=== PATIENT | male | born 1975 | race Caucasian/White ===

== ENCOUNTER 2018-06-28 09:11 | Inpatient (IN) | payer OTHER ==
[2018-06-28 09:27] VITALS: BMI 33.7
--- NOTE | 2018-06-28 10:12 | HP ---
CIWA Score Nausea/Vomitin-No Nausea/No Vomiting Muscle Tremors: 4-Moderate,w/Arms Extend Anxiety: 4-Mod. Anxious/Guarded Agitation: 4-Moderately Restless Paroxysmal Sweats: 3 Orientation: 0-Oriented Tacttile Disturbances: 0-None Auditory Disturbances: 0-None Visual Disturbances: 0-None Headache: 5-Severe CIWA-Ar Total Score: 20 - Admission Criteria [facility]ASAS Guidelines: Admission for Medically Managed Detox: Requires at least one of the followin. CIWA greater than 12 2. Seizures within the past 24 hours 3. Delirium tremens within the past 24 hours 4. Hallucinations within the past 24 hours 5. Acute intervention needed for co occurring medical disorder 6. Acute intervention needed for co occurring psychiatric disorder 7. Severe withdrawal that cannot be handled at a lower level of care (continued vomiting, continued diarrhea, abnormal vital signs) requiring intravenous medication and/or fluids 8. Admission ROS [facility] - [facility] Allergies/Adverse Reactions: Allergies Allergy/AdvReac Type Severity Reaction Status Date / Time No Known Allergies Allergy Verified 06/28/18 09:21 History of Present Illness: pt here requesting detox from etoh use , reports current daily use 4-6 pints liquor , starts drinking around 6 am , reports irritability and anxiety if not drinking , reports use since age 13, heavily since age 18, latest use yesterday evening 6 pm , current symptoms as above , longest sobriety 2 weeks " my family wanted me to stop drinking " , reports severe depression and etoh use since the of his sister 1 year ago in MVA , denies suicide attempts , denies current SI / HI . [place] detox " a long time ago ' reports did not complete admission process. reprots binge- drinking at times , did not try meds . 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 Exam Limitations: Clinical Condition - Ebola screening Have you traveled outside of the country in the last 21 days: No (N) Have you had contact with anyone from an Ebola affected area: No Do you have a fever: No - Review of Systems Constitutional: See HPI EENT: reports: No Symptoms Reported Respiratory: reports: No Symptoms reported Cardiac: reports: No Symptoms Reported GI: reports: No Symptoms Reported : reports: No Symptoms Reported Musculoskeletal: reports: No Symptoms Reported Integumentary: reports: No Symptoms Reported Neuro: reports: See HPI, Headache Endocrine: reports: No Symptoms Reported Psychiatric: reports: Orientated x3, Agitated, Anxious Patient History - Smoking Cessation Smoking history: Current every day smoker Initiated information on smoking cessation: No - Substances abused Alcohol Substance route: Oral Frequency: Daily Amount used: WHISKEY/VODKA- 5 PTS Age of first use: 14 Date of last use: 06/27/18 Family Disease History - Family Disease History Family Disease History: CA: Grandparent (GP - lung CA , uncle lung CA ), Other : Father (75 A & W ), Mother (d. 53 lung CA ), Sister (d. 43 MVA ( 2018 ) w/ 2 d. 8-yr old nieces) Admission Physical Exam S - Vital Signs Vital Signs: Vital Signs - 24 hr 06/28/18 09:15 Temperature 97.0 F L Pulse Rate 99 H Respiratory 18 Rate Blood Pressure 126/78 - Physical General Appearance: Yes: Moderate Distress, Irritable, Anxious HEENTM: Yes: EOMI, Hearing grossly Normal, Normocephalic, Normal Voice Respiratory: Yes: Chest Non-Tender, Lungs Clear, Normal Breath Sounds Neck: Yes: No masses,lesions,Nodules, Trachea in good position Cardiology: Yes: Regular Rhythm, Regular Rate, S1, S2, Tachycardia Abdominal: Yes: Non Tender, Soft, Protuberent Back: Yes: Normal Inspection Musculoskeletal: Yes: full range of Motion, Gait Steady Extremities: Yes: Normal Range of Motion, Non-Tender, Tremors Neurological: Yes: Alert, Motor Strength 5/5 Integumentary: Yes: Warm - Diagnostic (1) Alcohol abuse Current Visit: Yes Status: Acute (2) Nicotine dependence Current Visit: Yes Status: Acute Qualifiers: Nicotine product type: cigarettes Breathalyzer - Breathalyzer Breathalyzer: 0 Urine Drug Screen - Test Device Lot number: [id number] Expiration date: 03/17/20 - Control Is test valid?: Yes - Results Drug screen NEGATIVE: Yes Inpatient Rehab Admission - Rehab Decision to Admit Inpatient rehab admission?: No
[2018-06-28] MEDS ORDERED: MAGNESIUM CITRATE 300 ML BOTTLE PO PRN (10:30)
[2018-06-28] MEDS ORDERED: IBUPROFEN 400 MG TABLET (FP) PO PRN (10:30)
[2018-06-28] MEDS ORDERED: MAG HYDROX/AL HYDROX/SIMETH 30 ML UNIT-DOSE CUP PO PRN (10:30)
[2018-06-28] MEDS ORDERED: ACETAMINOPHEN 325 MG TABLET (FP) PO PRN (10:30)
[2018-06-28] MEDS ORDERED: MENTHOL/PHENOL 1 EACH UD MM PRN (10:30)
[2018-06-28] MEDS ORDERED: hydrOXYzine PAMOATE 25 MG CAPSULE (FP) PO PRN (10:30)
[2018-06-28] MEDS ORDERED: chlordiazePOXIDE HCL 25 MG CAPSULE PO PRN (10:30)
[2018-06-28] MEDS ORDERED: MAGNESIUM HYDROX 2400MG/30ML ORAL SUSPENSION 30 ML CUP PO PRN (10:30)
[2018-06-28] MEDS ORDERED: DICYCLOMINE HCL 10 MG CAPSULE PO PRN (10:30)
[2018-06-28] MEDS: chlordiazePOXIDE HCL 25 MG CAPSULE PO SCH ×3 (11:51→22:25)
[2018-06-28 15:54] LABS: HEMATOCRIT 44.7 % (35.4-49); HEMOGLOBIN 15.1 GM/dL (11.7-16.9); MCH 33.2 pg (25.7-33.7); MCHC 33.9 g/dl (32.0-35.9); MEAN CELL VOLUME 97.9 fl (80-96); MEAN PLT VOLUME 8.5 fl (7.5-11.1); PLATELET COUNT 140 K/MM3 (134-434); RBC 4.57 M/mm3 (4.00-5.60); RDW 13.5 % (11.9-15.9)
[2018-06-28 16:08] LABS: ALBUMIN 3.7 g/dl (3.4-5.0); BILIRUBIN,TOTAL 0.5 mg/dL (0.2-1); CALCIUM 8.8 mg/dL (8.5-10.1); CREATININE 1.1 mg/dL (0.55-1.3); POTASSIUM 4.1 mmol/L (3.5-5.1); TOT PROT 6.9 g/dl (6.4-8.2)
[2018-06-28] MEDS: NICOTINE POLACRILEX 2 MG GUM BUC PRN (17:06)
[2018-06-28] MEDS: ACETAMINOPHEN 325 MG TABLET (FP) PO PRN (17:08)
[2018-06-28] MEDS: BISMUTH SUBSALICYLATE 262 MG/15 ML BTL PO PRN ×2 (19:47→22:28)
[2018-06-28] MEDS: MELATONIN 5 MG TABLETS PO PRN (22:25)
[2018-06-28] MEDS: THIAMINE HCL 100 MG TABLET (FP) PO SCH (22:25)
[2018-06-29] MEDS: BISMUTH SUBSALICYLATE 262 MG/15 ML BTL PO PRN (06:31)
[2018-06-29] MEDS: ACETAMINOPHEN 325 MG TABLET (FP) PO PRN ×2 (06:32→17:12)
[2018-06-29] MEDS: chlordiazePOXIDE HCL 25 MG CAPSULE PO SCH ×4 (06:34→22:32)
[2018-06-29] MEDS: PRENATAL VITAMINS W/ FOLIC ACID TABLET (FP) PO SCH (10:21)
[2018-06-29] MEDS: NICOTINE POLACRILEX 2 MG GUM BUC PRN ×2 (10:23→17:15)
[2018-06-29] MEDS ORDERED: LOPERAMIDE HCL 2 MG CAPSULE PO PRN (11:56)
[2018-06-29] MEDS ORDERED: PNEUMOC 13-VAL CONJ-DIP CRM/PF 0.5 ML DISP.SYRIN IM ONE (12:00)
[2018-06-29] MEDS ORDERED: PNEUMOCOCCAL 23 VACCINE 0.5 ML VIAL IM ONE (12:00)
--- NOTE | 2018-06-29 14:45 | PN ---
S CIWA - CIWA Score Nausea/Vomitin Muscle Tremors: None Anxiety: 4-Mod. Anxious/Guarded Agitation: 2 Paroxysmal Sweats: No Perspiration Orientation: 0-Oriented Tacttile Disturbances: 1-Very Mild Itch/Numbness Auditory Disturbances: 2-Mild Harshness/Frighten Visual Disturbances: 2-Mild Sensitivity Headache: 0-None Present CIWA-Ar Total Score: 13 BHS Progress Note (SOAP) Subjective: Anxious, Nausea, Diarrhea (Severe), Tremors. Objective: PATIENT A & O X 3, OBSERVED AMBULATING ON UNIT UNASSISTED. IN NO ACUTE DISTRESS. 06/29/18 14:46 Vital Signs Temperature 97.3 F L 06/29/18 13:16 Pulse Rate 97 H 06/29/18 13:16 Respiratory Rate 20 06/29/18 13:16 Blood Pressure 122/81 06/29/18 13:16 O2 Sat by Pulse Oximetry (%) Laboratory Tests 06/28/18 06/28/18 06/28/18 10:15 10:15 10:15 WBC 8.0 RBC 4.57 Hgb 15.1 Hct 44.7 MCV 97.9 H MCH 33.2 MCHC 33.9 RDW 13.5 Plt Count 140 MPV 8.5 Sodium 134 L Potassium 4.1 Chloride 100 Carbon Dioxide 28 Anion Gap 6 L BUN 15 Creatinine 1.1 Est GFR (CKD-EPI)AfAm 96.81 Est GFR (CKD-EPI)NonAf 83.53 Random Glucose 101 Calcium 8.8 Total Bilirubin 0.5 AST 41 H ALT 54 Alkaline Phosphatase 81 Total Protein 6.9 Albumin 3.7 RPR Titer Nonreactive LABS NOTED. Assessment: 06/29/18 14:47 WITHDRAWAL SYMPTOMS. DIARRHEA. 06/29/18 14:48 Plan: CONTINUE DETOX. INCREASE DAILY PO FLUID INTAKE. PATIENT REPORTS MINIMAL EFFECT FROM PRN PEPTO-BISMOL PO FOR DIARRHEA. CHANGE TO PRN IMMODIUM PO.
[2018-06-29] MEDS: MELATONIN 5 MG TABLETS PO PRN (22:32)
[2018-06-29] MEDS: THIAMINE HCL 100 MG TABLET (FP) PO SCH (22:32)
[2018-06-30] MEDS: chlordiazePOXIDE HCL 25 MG CAPSULE PO SCH (06:00)
[2018-06-30] MEDS: ACETAMINOPHEN 325 MG TABLET (FP) PO PRN ×3 (06:02→20:40)
[2018-06-30] MEDS: NICOTINE POLACRILEX 2 MG GUM BUC PRN ×5 (06:03→21:25)
[2018-06-30] MEDS: PRENATAL VITAMINS W/ FOLIC ACID TABLET (FP) PO SCH (10:55)
[2018-06-30] MEDS: chlordiazePOXIDE HCL 10 MG CAPSULE PO SCH ×3 (10:55→22:19)
[2018-06-30] MEDS ORDERED: chlordiazePOXIDE HCL 10 MG CAPSULE PO PRN (11:00)
--- NOTE | 2018-06-30 14:24 | PN ---
S CIWA - CIWA Score Nausea/Vomitin Muscle Tremors: 2 Anxiety: 2 Agitation: 1-Slight > Activity Paroxysmal Sweats: 1-Minimal Palms Moist Orientation: 0-Oriented Tacttile Disturbances: 1-Very Mild Itch/Numbness Auditory Disturbances: 1-Very Mild Visual Disturbances: 0-None Headache: 2-Mild CIWA-Ar Total Score: 12 BHS Progress Note (SOAP) Subjective: alert,irritable,anxious,interrupted sleep,tremor Objective: 06/30/18 14:24 Vital Signs Temperature 96.7 F L 06/30/18 10:33 Pulse Rate 96 H 06/30/18 10:33 Respiratory Rate 18 06/30/18 10:33 Blood Pressure 114/70 06/30/18 10:33 O2 Sat by Pulse Oximetry (%) Assessment: 06/30/18 14:24 withdrawal symptom Plan: continue detox
[2018-06-30] MEDS: MELATONIN 5 MG TABLETS PO PRN (22:20)
[2018-06-30] MEDS: THIAMINE HCL 100 MG TABLET (FP) PO SCH (22:20)
[2018-07-01] MEDS: chlordiazePOXIDE HCL 10 MG CAPSULE PO SCH ×3 (05:54→22:36)
[2018-07-01] MEDS: ACETAMINOPHEN 325 MG TABLET (FP) PO PRN ×3 (05:55→22:10)
[2018-07-01] MEDS: NICOTINE POLACRILEX 2 MG GUM BUC PRN ×4 (09:18→22:10)
[2018-07-01] MEDS: PRENATAL VITAMINS W/ FOLIC ACID TABLET (FP) PO SCH (10:20)
--- NOTE | 2018-07-01 14:20 | PN ---
S CIWA - CIWA Score Nausea/Vomitin-No Nausea/No Vomiting Muscle Tremors: 1-None Visible, but [place] Anxiety: 1-Mildly Anxious Agitation: 1-Slight > Activity Paroxysmal Sweats: No Perspiration Orientation: 0-Oriented Tacttile Disturbances: 0-None Auditory Disturbances: 0-None Visual Disturbances: 0-None Headache: 1-Very Mild CIWA-Ar Total Score: 4 BHS Progress Note (SOAP) Subjective: pt state he is doing "OK" on alcohol detox protocol O: Vital Signs - 24 hr 06/30/18 06/30/18 06/30/18 15:21 16:46 21:41 Temperature 97.2 F L 98.1 F 98.2 F Pulse Rate 99 H 72 102 H Respiratory 18 19 18 Rate Blood Pressure 101/55 L 117/70 116/72 07/01/18 07/01/18 07/01/18 00:30 03:30 06:59 Temperature 97.3 F L Pulse Rate 97 H Respiratory 18 18 20 Rate Blood Pressure 132/74 07/01/18 07/01/18 09:07 13:33 Temperature 98.4 F 98.3 F Pulse Rate 88 72 Respiratory 19 18 Rate Blood Pressure 131/79 132/74 Laboratory Tests 06/28/18 06/28/18 06/28/18 10:15 10:15 10:15 WBC 8.0 RBC 4.57 Hgb 15.1 Hct 44.7 MCV 97.9 H MCH 33.2 MCHC 33.9 RDW 13.5 Plt Count 140 MPV 8.5 Sodium 134 L Potassium 4.1 Chloride 100 Carbon Dioxide 28 Anion Gap 6 L BUN 15 Creatinine 1.1 Est GFR (CKD-EPI)AfAm 96.81 Est GFR (CKD-EPI)NonAf 83.53 Random Glucose 101 Calcium 8.8 Total Bilirubin 0.5 AST 41 H ALT 54 Alkaline Phosphatase 81 Total Protein 6.9 Albumin 3.7 RPR Titer Nonreactive a/p: continue alcohol detox protocol, pt to discuss with counselor re [place] [facility] treatment plans
[2018-07-01] MEDS: THIAMINE HCL 100 MG TABLET (FP) PO SCH (21:50)
[2018-07-01] MEDS: MELATONIN 5 MG TABLETS PO PRN (21:50)
[2018-07-02 06:05] VITALS: BP 147/75; PULSE 78; TEMP 97.5
--- NOTE | 2018-07-02 12:26 | DS ---
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 Pt is AOX3, in no respiratory distress. Pertinent Past History: H/O alcohol use disorder - Physical Exam Results Vital Signs: Vital Signs Temperature 97.5 F L 07/02/18 06:00 Pulse Rate 78 07/02/18 06:00 Respiratory Rate 18 07/02/18 06:00 Blood Pressure 147/75 07/02/18 06:00 O2 Sat by Pulse Oximetry (%) Lab Results WBC 8.0 K/mm3 (4.0-10.0) 06/28/18 10:15 RBC 4.57 M/mm3 (4.00-5.60) 06/28/18 10:15 Hgb 15.1 GM/dL (11.7-16.9) 06/28/18 10:15 Hct 44.7 % (35.4-49) 06/28/18 10:15 MCV 97.9 fl (80-96) H 06/28/18 10:15 MCHC 33.9 g/dl (32.0-35.9) 06/28/18 10:15 RDW 13.5 % (11.9-15.9) 06/28/18 10:15 Plt Count 140 K/MM3 (134-434) 06/28/18 10:15 Sodium 134 mmol/L (136-145) L 06/28/18 10:15 Potassium 4.1 mmol/L (3.5-5.1) 06/28/18 10:15 Chloride 100 mmol/L (98-107) 06/28/18 10:15 Carbon Dioxide 28 mmol/L (21-32) 06/28/18 10:15 Anion Gap 6 MMOL/L (8-16) L 06/28/18 10:15 BUN 15 mg/dL (7-18) 06/28/18 10:15 Creatinine 1.1 mg/dL (0.55-1.3) 06/28/18 10:15 Random Glucose 101 mg/dL (74-106) 06/28/18 10:15 Calcium 8.8 mg/dL (8.5-10.1) 06/28/18 10:15 Labs reviewed. Pertinent Admission Physical Exam Findings: withdrawal symptoms - Treatment Hospital Course: Detox Protocol Followed, Detoxed Safely, Responded well, Discharged Condition Good, Rehab Referral Accepted Patient has Accepted a Rehab Referral to: [facility] - Medication Discharge Medications: Ambulatory Orders NK [No Known Home Medication] 06/28/18 - Diagnosis (1) Alcohol abuse Status: Acute (2) Nicotine dependence Status: Acute Qualifiers: Nicotine product type: cigarettes - AMA Did Patient Leave Against Medical Advice: No
== END 2018-07-02 09:08 | disposition other institution (70) | DRG 775 ==
LOC: YASAS 09:11 → Y6N 10:39
PROVIDERS: ADMIT Surgery; ATTEND Surgery
PROC: HZ2ZZZZ Detoxification Services for Substance Abuse Treatment (ICD-10-PCS; principal; 2018-06-28)
DX: F10.230 Alcohol dependence with withdrawal, uncomplicated (principal); F17.210 Nicotine dependence, cigarettes, uncomplicated; Z59.0 Homelessness
CPT/HCPCS: 36415; 80053; 85027; 86593